=== PATIENT | female | born 2000 | race Caucasian/White ===

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

== ENCOUNTER 2018-05-05 23:06 | Emergency (ER) | payer OTHER ==
[2018-05-05] MEDS ORDERED: SODIUM CHLORIDE 0.9% 1,000 ML IV STA (23:13)
[2018-05-05] MEDS ORDERED: SODIUM CHLORIDE 0.9% 500 ML IV STA (23:13)
[2018-05-05 23:55] LABS: Basophils % (A) 1 %; Eosinophils # (A) 0.2 k/uL (0-0.7); Eosinophils % (A) 3 %; HCT 37.2 % (34.0-46.0); Lymphocytes # (A) 2.2 k/uL (1.0-4.8); Lymphocytes % (A) 49 %; MCH 28.5 pg (25.0-35.0); MCHC 32.2 g/dL (31.0-37.0); MCV 88.4 fL (80.0-100.0); Mean Platelet Volume 6.6; Monocytes # (A) 0.2 k/uL (0-1.0); Monocytes % (A) 5 %; Neutrophils # (A) 1.8 k/uL (1.3-7.7); Neutrophils % (A) 39 %; Platelet Count 249 k/uL (150-450); RBC 4.21 m/uL (3.80-5.40); RDW 13.7 % (11.5-15.5); WBC 4.6 k/uL (4.0-11.0)
[2018-05-06 00:07] LABS: ALT 32 U/L (9-52); AST 26 U/L (14-36); Acetaminophen <10.0 ug/mL; Albumin 4.4 g/dL (3.5-5.0); Alcohol <10 mg/dL; Alkaline Phosphatase 58 U/L (38-126); Anion Gap 11 mmol/L; Blood Urea Nitrogen 10 mg/dL (7-17); Calcium 8.8 mg/dL (8.4-10.2); Carbon Dioxide 24 mmol/L (22-30); Chloride 104 mmol/L (98-107); Glucose 213 mg/dL (74-99); Magnesium 1.9 mg/dL (1.6-2.3); Potassium 3.8 mmol/L (3.5-5.1); Salicylate <1.0 mg/dL; Sodium 139 mmol/L (137-145); Total Bilirubin 0.3 mg/dL (0.2-1.3); Total Protein 7.2 g/dL (6.3-8.2)
[2018-05-06] MEDS ORDERED: NALOXONE 0.4 MG/ML 1 ML VIAL IV STA (00:08)
[2018-05-06 00:16] LABS: INR 1.1 (<1.2); Partial Thromboplastin Time 20.7 sec (22.0-30.0); Prothrombin Time 10.7 sec (9.0-12.0)
[2018-05-06 00:26] LABS: Amphetamine Screen,Urine Detected (NotDetected); Barbiturate Screen,Urine Not Detected (NotDetected); Benzodiazepines Screen,Urine Detected (NotDetected); Cocaine Screen,Urine Not Detected (NotDetected); Methadone Screen, Urine Not Detected (NotDetected); Opiate Screen,Urine Not Detected (NotDetected); Oxycodone Screen, Urine Not Detected (NotDetected); Phencyclidine Screen,Urine Not Detected (NotDetected); Tricyclic Antidepressant,Urine Not Detected (NotDetected); Urn Cannabinoid Scrn Not Detected (NotDetected)
[2018-05-06 00:27] LABS: Creatine Kinase 48 U/L (30-135)
[2018-05-06 00:40] LABS: Creatine Kinase MB 0.4 ng/mL (0.0-2.4); Troponin I <0.012 ng/mL (0.000-0.034)
--- NOTE | 2018-05-06 00:45 | ED ---
Overdose HPI - General Chief Complaint: Overdose Stated Complaint: overdose Time Seen by Provider: 05/05/18 23:13 Source: family Mode of arrival: wheelchair Limitations: altered mental status - History of Present Illness Initial Comments: 18 years O female overdosed with medications she stated she took some back and symptoms benzodiazepines she was brought in by friends on arrival she was not breathing he was quite pale she was not even responding to sternal rub. Now her friend said that she has a history of drug abuse in the past and there were some needle green visible on her forearms on arrival review of system is not available - Related Data Home Medications Medication Instructions Recorded Confirmed LORazepam [Ativan] 2 mg PO Q12HR PRN 05/14/17 09/22/17 Previous Rx's Medication Instructions Recorded Cephalexin [Keflex] 500 mg PO Q8HR #30 cap 05/06/18 Allergies Allergy/AdvReac Type Severity Reaction Status Date / Time animal dander Allergy Itching Verified 05/06/18 00:03 amoxicillin [From Augmentin] AdvReac Nausea & Verified 05/06/18 00:03 Vomiting clavulanic acid AdvReac Nausea & Verified 05/06/18 00:03 [From Augmentin] Vomiting Review of Systems ROS Statement: Those systems with pertinent positive or pertinent negative responses have been documented in the HPI. ROS Other: All systems not noted in ROS Statement are negative. Past Medical History Past Medical History: No Reported History Additional Past Medical History / Comment(s): migraines, hep C History of Any Multi-Drug Resistant Organisms: None Reported Past Surgical History: No Surgical Hx Reported Additional Past Surgical History / Comment(s): wisdom teeth removed. Past Psychological History: Anxiety, Depression Smoking Status: Former smoker Past Alcohol Use History: None Reported Past Drug Use History: Heroin, Methamphetamine, Prescription Drug Abuse General Exam - General Exam Comments Initial Comments: General: The patient is unresponsive on arrival Skin: Skin is warm and dry and no rashes or lesions are noted. Eye: Pupils are equal, round and reactive to light. Ears, nose, mouth and throat: There are moist mucous membranes and no oral lesions. Neck: The neck is supple, there is no tenderness . Cardiovascular: There is a regular rate and rhythm. Noticed tachycardia Respiratory: To auscultation bilateral, adequate air exchange noticed bilaterally but she was being bagged , her respiratory rate was 5 breaths per minute Gastrointestinal: Soft, non-distended, non-tender abdomen without masses or organomegaly noted. There is no rebound or guarding present. Bowel sounds are unremarkable. Back: There is no tenderness to palpation in the midline. There is no obvious deformity. Musculoskeletal: Normal ROM, no tenderness, There is no pedal edema. There is no calf tenderness or swelling. No cords were appreciated. Neurological: CN II-XII intact, Cranial nerves III through XII are intact. There are no obvious motor or sensory deficits. Coordination appears grossly intact. Speech is normal. Psychiatric: Cooperative, appropriate mood & affect, normal judgment. Limitations: altered mental status Course Vital Signs 05/05/18 05/05/18 05/06/18 23:50 23:57 00:03 Temperature 98.0 F Pulse Rate 117 H Pulse Rate [ 117 H Cmm Inspector ] Respiratory 18 26 H Rate Blood Pressure 117/88 O2 Sat by Pulse 100 Oximetry EKG is a sinus tachycardia ventricular rate is 113 MT interval is 142 QRS duration is 82 QT/QTc is 348/477. This EKG does not reveal any ST elevation or ST depression - Reevaluation(s) Reevaluation #1: At term 1245 she feels better she has right and she has a friend with her she was to go home as soon as she is done with A couple of liters of fluid she be discharged home with her friend 05/06/18 00:46 Medical Decision Making - Lab Data Result diagrams: 05/05/18 23:33 05/05/18 23:33 Lab Results 05/05/18 05/05/18 05/05/18 Range/Units 23:33 23:33 23:33 WBC 4.6 (4.0-11.0) k/uL RBC 4.21 (3.80-5.40) m/uL Hgb 12.0 (11.4-16.0) gm/dL Hct 37.2 (34.0-46.0) % MCV 88.4 (80.0-100.0) fL MCH 28.5 (25.0-35.0) pg MCHC 32.2 (31.0-37.0) g/dL RDW 13.7 (11.5-15.5) % Plt Count 249 (150-450) k/uL Neutrophils % 39 % Lymphocytes % 49 % Monocytes % 5 % Eosinophils % 3 % Basophils % 1 % Neutrophils # 1.8 (1.3-7.7) k/uL Lymphocytes # 2.2 (1.0-4.8) k/uL Monocytes # 0.2 (0-1.0) k/uL Eosinophils # 0.2 (0-0.7) k/uL Basophils # 0.0 (0-0.2) k/uL PT (9.0-12.0) sec INR (<1.2) APTT (22.0-30.0) sec Sodium 139 (137-145) mmol/L Potassium 3.8 (3.5-5.1) mmol/L Chloride 104 (98-107) mmol/L Carbon Dioxide 24 (22-30) mmol/L Anion Gap 11 mmol/L BUN 10 (7-17) mg/dL Creatinine 0.80 (0.52-1.04) mg/dL Est GFR (CKD-EPI)AfAm >90 (>60 ml/min/1.73 sqM) Est GFR (CKD-EPI)NonAf >90 (>60 ml/min/1.73 sqM) Glucose 213 H (74-99) mg/dL Plasma Lactic Acid Nick (0.7-2.0) mmol/L Calcium 8.8 (8.4-10.2) mg/dL Magnesium 1.9 (1.6-2.3) mg/dL Total Bilirubin 0.3 (0.2-1.3) mg/dL AST 26 (14-36) U/L ALT 32 (9-52) U/L Alkaline Phosphatase 58 (38-126) U/L Total Creatine Kinase 48 (30-135) U/L CK-MB (CK-2) 0.4 (0.0-2.4) ng/mL CK-MB (CK-2) Rel Index 0.8 Troponin I <0.012 (0.000-0.034) ng/mL Total Protein 7.2 (6.3-8.2) g/dL Albumin 4.4 (3.5-5.0) g/dL Urine HCG, Qual (Not Detectd) Salicylates <1.0 mg/dL Urine Opiates Screen (NotDetected) Ur Oxycodone Screen (NotDetected) Urine Methadone Screen (NotDetected) Ur Propoxyphene Screen (NotDetected) Acetaminophen <10.0 ug/mL Ur Barbiturates Screen (NotDetected) U Tricyclic Antidepress (NotDetected) Ur Phencyclidine Scrn (NotDetected) Ur Amphetamines Screen (NotDetected) U Methamphetamines Scrn (NotDetected) U Benzodiazepines Scrn (NotDetected) Urine Cocaine Screen (NotDetected) U Marijuana (THC) Screen (NotDetected) Serum Alcohol <10 mg/dL 05/05/18 05/05/18 05/06/18 Range/Units 23:33 23:33 00:12 WBC (4.0-11.0) k/uL RBC (3.80-5.40) m/uL Hgb (11.4-16.0) gm/dL Hct (34.0-46.0) % MCV (80.0-100.0) fL MCH (25.0-35.0) pg MCHC (31.0-37.0) g/dL RDW (11.5-15.5) % Plt Count (150-450) k/uL Neutrophils % % Lymphocytes % % Monocytes % % Eosinophils % % Basophils % % Neutrophils # (1.3-7.7) k/uL Lymphocytes # (1.0-4.8) k/uL Monocytes # (0-1.0) k/uL Eosinophils # (0-0.7) k/uL Basophils # (0-0.2) k/uL PT 10.7 (9.0-12.0) sec INR 1.1 (<1.2) APTT 20.7 L (22.0-30.0) sec Sodium (137-145) mmol/L Potassium (3.5-5.1) mmol/L Chloride (98-107) mmol/L Carbon Dioxide (22-30) mmol/L Anion Gap mmol/L BUN (7-17) mg/dL Creatinine (0.52-1.04) mg/dL Est GFR (CKD-EPI)AfAm (>60 ml/min/1.73 sqM) Est GFR (CKD-EPI)NonAf (>60 ml/min/1.73 sqM) Glucose (74-99) mg/dL Plasma Lactic Acid Nick 2.2 H* (0.7-2.0) mmol/L Calcium (8.4-10.2) mg/dL Magnesium (1.6-2.3) mg/dL Total Bilirubin (0.2-1.3) mg/dL AST (14-36) U/L ALT (9-52) U/L Alkaline Phosphatase (38-126) U/L Total Creatine Kinase (30-135) U/L CK-MB (CK-2) (0.0-2.4) ng/mL CK-MB (CK-2) Rel Index Troponin I (0.000-0.034) ng/mL Total Protein (6.3-8.2) g/dL Albumin (3.5-5.0) g/dL Urine HCG, Qual (Not Detectd) Salicylates mg/dL Urine Opiates Screen Not Detected (NotDetected) Ur Oxycodone Screen Not Detected (NotDetected) Urine Methadone Screen Not Detected (NotDetected) Ur Propoxyphene Screen Not Detected (NotDetected) Acetaminophen ug/mL Ur Barbiturates Screen Not Detected (NotDetected) U Tricyclic Antidepress Not Detected (NotDetected) Ur Phencyclidine Scrn Not Detected (NotDetected) Ur Amphetamines Screen Detected H (NotDetected) U Methamphetamines Scrn Detected H (NotDetected) U Benzodiazepines Scrn Detected H (NotDetected) Urine Cocaine Screen Not Detected (NotDetected) U Marijuana (THC) Screen Not Detected (NotDetected) Serum Alcohol mg/dL 05/06/18 Range/Units 00:12 WBC (4.0-11.0) k/uL RBC (3.80-5.40) m/uL Hgb (11.4-16.0) gm/dL Hct (34.0-46.0) % MCV (80.0-100.0) fL MCH (25.0-35.0) pg MCHC (31.0-37.0) g/dL RDW (11.5-15.5) % Plt Count (150-450) k/uL Neutrophils % % Lymphocytes % % Monocytes % % Eosinophils % % Basophils % % Neutrophils # (1.3-7.7) k/uL Lymphocytes # (1.0-4.8) k/uL Monocytes # (0-1.0) k/uL Eosinophils # (0-0.7) k/uL Basophils # (0-0.2) k/uL PT (9.0-12.0) sec INR (<1.2) APTT (22.0-30.0) sec Sodium (137-145) mmol/L Potassium (3.5-5.1) mmol/L Chloride (98-107) mmol/L Carbon Dioxide (22-30) mmol/L Anion Gap mmol/L BUN (7-17) mg/dL Creatinine (0.52-1.04) mg/dL Est GFR (CKD-EPI)AfAm (>60 ml/min/1.73 sqM) Est GFR (CKD-EPI)NonAf (>60 ml/min/1.73 sqM) Glucose (74-99) mg/dL Plasma Lactic Acid Nick (0.7-2.0) mmol/L Calcium (8.4-10.2) mg/dL Magnesium (1.6-2.3) mg/dL Total Bilirubin (0.2-1.3) mg/dL AST (14-36) U/L ALT (9-52) U/L Alkaline Phosphatase (38-126) U/L Total Creatine Kinase (30-135) U/L CK-MB (CK-2) (0.0-2.4) ng/mL CK-MB (CK-2) Rel Index Troponin I (0.000-0.034) ng/mL Total Protein (6.3-8.2) g/dL Albumin (3.5-5.0) g/dL Urine HCG, Qual Not Detected (Not Detectd) Salicylates mg/dL Urine Opiates Screen (NotDetected) Ur Oxycodone Screen (NotDetected) Urine Methadone Screen (NotDetected) Ur Propoxyphene Screen (NotDetected) Acetaminophen ug/mL Ur Barbiturates Screen (NotDetected) U Tricyclic Antidepress (NotDetected) Ur Phencyclidine Scrn (NotDetected) Ur Amphetamines Screen (NotDetected) U Methamphetamines Scrn (NotDetected) U Benzodiazepines Scrn (NotDetected) Urine Cocaine Screen (NotDetected) U Marijuana (THC) Screen (NotDetected) Serum Alcohol mg/dL Critical Care Time Total Critical Care Time: 30 Critical Care Time: Arrival she was unresponsive respiratory rate was very low she look pale she was at work just respiratory failure , he was bagged knowing that she overdosed with the uterine mostly a few bag patient for few minutes they wake up. Narcan was given as well 0.4 was repeated 34 times she was quite dehydrated IV attempts failed a few times at that point intraosseous was done at the proximal tibia plate below the tibial tuberosity I were able to give her the Narcan through that I would give her some fluids and about term after 1520 minutes she started waking up blood work was done, CBC, comp his metabolic panel was fine and lactate is 2.2 at 2 L of fluids are ordered urinalysis showed amphetamine meth) so was positive no alcohol was noticed Disposition Clinical Impression: Drug overdose, Polysubstance abuse, Cellulitis of left hand Disposition: HOME SELF-CARE Condition: Good Instructions: Methamphetamine Abuse (ED) Prescriptions: Cephalexin [Keflex] 500 mg PO Q8HR #30 cap Is patient prescribed a controlled substance at d/c from ED?: No Referrals: Nickolas Kennedy III, MD [Primary Care Provider] - 1-2 days
--- NOTE | 2018-05-06 01:04 | XR ---
EXAMINATION TYPE: XR chest 2V DATE OF EXAM: 05/06/2018 COMPARISON: 05/14/2017 HISTORY: Chest pain TECHNIQUE: Frontal and lateral views of the chest are obtained. FINDINGS: Heart and mediastinum are normal. Lungs are clear. Diaphragm is normal. Bony thorax appear s normal. IMPRESSION: Normal chest. No change.
[2018-05-06 02:16] VITALS: BP 121/78; PULSE 118; RESP 18; TEMP 98.7
== END 2018-05-06 02:19 | disposition home or self-care (01) ==
LOC: SUPCPDRO 23:06 → EC 23:06
DX: T43.621A Poisoning by amphetamines, accidental (unintentional), initial encounter (principal); F19.10 Other psychoactive substance abuse, uncomplicated; L03.114 Cellulitis of left upper limb; R00.0 Tachycardia, unspecified; R41.82 Altered mental status, unspecified; Z87.891 Personal history of nicotine dependence; Z88.0 Allergy status to penicillin; Z91.048 Other nonmedicinal substance allergy status
CPT/HCPCS: 36415 ×2; 93005; 80053; 82550; 82553; 83605; 83735; 84484; 85025; 85610; 85730; 81025; 80306; 83520 ×2; 80320; 71046; 99285; 96374; 96361 ×2; J2310

== ENCOUNTER 2018-05-26 12:17 | Emergency (ER) | payer OTHER ==
[2018-05-26] MEDS ORDERED: SODIUM CHLORIDE 0.9% 1,000 ML IV STA (13:42)
[2018-05-26 14:14] LABS: Basophils % (A) 0 %; Eosinophils # (A) 0.3 k/uL (0-0.7); Eosinophils % (A) 3 %; HCT 38.3 % (34.0-46.0); HGB 13.3 gm/dL (11.4-16.0); Lymphocytes # (A) 2.4 k/uL (1.0-4.8); Lymphocytes % (A) 28 %; MCH 30.4 pg (25.0-35.0); MCHC 34.7 g/dL (31.0-37.0); MCV 87.5 fL (80.0-100.0); Mean Platelet Volume 6.8; Monocytes # (A) 0.5 k/uL (0-1.0); Monocytes % (A) 6 %; Neutrophils # (A) 5.2 k/uL (1.3-7.7); Neutrophils % (A) 61 %; Platelet Count 269 k/uL (150-450); RBC 4.38 m/uL (3.80-5.40); RDW 13.5 % (11.5-15.5); WBC 8.4 k/uL (4.0-11.0)
[2018-05-26 14:29] LABS: ALT 42 U/L (9-52); AST 29 U/L (14-36); Albumin 5.1 g/dL (3.5-5.0); Alkaline Phosphatase 64 U/L (38-126); Anion Gap 13 mmol/L; Blood Urea Nitrogen 13 mg/dL (7-17); Carbon Dioxide 26 mmol/L (22-30); Chloride 102 mmol/L (98-107); Glucose 90 mg/dL (74-99); Potassium 3.8 mmol/L (3.5-5.1); Sodium 141 mmol/L (137-145); Total Bilirubin 1.2 mg/dL (0.2-1.3); Total Protein 8.7 g/dL (6.3-8.2)
[2018-05-26 14:38] LABS: Appearance,Urine Cloudy (Clear); Bacteria,Urine Many /hpf; Bilirubin,Urine Negative (Negative); Blood,Urine Negative (Negative); Color,Urine Yellow; Glucose,Urine (UA) Negative (Negative); Ketones,Urine 1+ (Negative); Leukocyte Esterase,Urine Small (Negative); Mucus,Urine Moderate /hpf; Nitrite,Urine Positive (Negative); Protein,Urine Trace (Negative); RBC,Urine 3 /hpf (0-5); Specific Gravity,Urine 1.019 (1.001-1.035); Squamous Epithelial Cell,Urine 2 /hpf (0-4); Urobilinogen,Urine <2.0 mg/dL (<2.0); WBC,Urine 49 /hpf (0-5)
[2018-05-26] MEDS ORDERED: VANCOMYCIN IV PER PHARMACY 1 EACH MISC MISCELLANE PRN (14:38)
[2018-05-26] MEDS ORDERED: VANCOMYCIN 1,000 MG in SODIUM CHLORIDE 0.9% 250 ML IVPB STA (14:42)
--- NOTE | 2018-05-26 15:19 | ED ---
Skin/Abscess/FB HPI - General Chief complaint: Skin/Abscess/Foreign Body Stated complaint: ABSCESS RT ARM Time Seen by Provider: 05/26/18 13:11 Source: patient, RN notes reviewed Mode of arrival: ambulatory Limitations: no limitations - History of Present Illness Initial comments: This is a 18-year-old female with history of IV drug abuse who presents to the emergency department with chief complaint of right arm abscess. Patient reports that yesterday a friend and was injecting methamphetamine intravenously into her right arm yesterday. Patient states that it immediately swelled up and then today became very red and tender. Patient reports a history of abscesses but states she normally takes care of them herself. Patient also states she is unsure if she may be , stating that she missed her period last month. She denies any fevers or chills, chest pain or shortness of breath , abdominal pain, nausea or vomiting. - Related Data Home Medications Medication Instructions Recorded Confirmed LORazepam [Ativan] 2 mg PO Q12HR PRN 05/14/17 09/22/17 Previous Rx's Medication Instructions Recorded Cephalexin [Keflex] 500 mg PO Q8HR #30 cap 05/06/18 Levofloxacin [Levaquin] 500 mg PO DAILY #7 tab 05/26/18 Allergies Allergy/AdvReac Type Severity Reaction Status Date / Time animal dander Allergy Itching Verified 05/26/18 12:44 amoxicillin [From Augmentin] AdvReac Nausea & Verified 05/26/18 12:44 Vomiting clavulanic acid AdvReac Nausea & Verified 05/26/18 12:44 [From Augmentin] Vomiting Review of Systems ROS Statement: Those systems with pertinent positive or pertinent negative responses have been documented in the HPI. ROS Other: All systems not noted in ROS Statement are negative. Past Medical History Past Medical History: No Reported History Additional Past Medical History / Comment(s): migraines, hep C History of Any Multi-Drug Resistant Organisms: None Reported Past Surgical History: No Surgical Hx Reported Additional Past Surgical History / Comment(s): wisdom teeth removed. Past Psychological History: Anxiety, Depression Smoking Status: Former smoker Past Alcohol Use History: None Reported Past Drug Use History: IV Drug Use, Methamphetamine, Prescription Drug Abuse General Exam - General Exam Comments Initial Comments: General: Awake and alert, well-developed; in no apparent distress. HEENT: Head atraumatic, normocephalic. Pupils are equal, round and reactive to light. Extraocular movements intact. Oropharynx moist without erythema or exudate. Neck: Supple. Normal ROM. Cardiovascular: Regular rate and rhythm. No murmurs, rubs or gallops. Chest symmetrical. Radial pulses are 2+ equal and palpable bilaterally. Respiratory: Lungs clear to auscultation bilaterally. No wheezes, rales or rhonchi. Normal respiratory effort with no use of accessory muscles. Musculoskeletal: Normal ROM bilateral upper and lower extremities. Ambulating normally. Skin: Erythema, tenderness and swelling of medial distal right arm measuring approximately 11 cm x 11 cm. Just lateral to this is an area of linear ecchymosis extending along a vein. There is a palpable cord with tenderness. Sensation is intact. Neurological: Alert and oriented x3. CN II-XII grossly intact. Speech is fluent and answers are appropriate. No focal neuro deficits. Psychiatric: Normal mood and affect. No overt signs of depression or anxiety noted. Limitations: no limitations Course Vital Signs 05/26/18 05/26/18 05/26/18 12:38 16:14 17:11 Temperature 98.2 F 98.4 F 98.3 F Pulse Rate 122 H 105 H 103 H Respiratory 16 18 18 Rate Blood Pressure 124/72 110/71 123/73 O2 Sat by Pulse 99 99 100 Oximetry Medical Decision Making - Medical Decision Making This is a 18-year-old female with history of IV drug abuse who presents to the emergency department with chief complaint of abscess. Patient reports IV drug use last evening. She states that she instantly developed swelling to the right arm and has now developed redness and tenderness. On physical examination , there is a large area of cellulitis to the medial right arm. There is also an area of ecchymosis with palpable cord that is consistent with superficial thrombophlebitis. An ultrasound venous Doppler duplex of the right upper extremity was obtained to rule out DVT. No evidence for DVT. CBC, CMP revealed no acute abnormalities. Lactic acid is within normal range. No white count. Urine hCG is negative. Urine does reveal evidence for infection with positive nitrites, leukocyte esterase and bacteria. Patient was started on a dose of IV vancomycin as she is high risk. Case was discussed with attending physician, Dr. Ruiz. Patient's vital signs are stable and she is in no acute distress. She will be discharged home with prescription for Levaquin. Return parameters were discussed including spreading of redness, streaking or redness or worsening symptoms. Patient also advised to return the emergency department if she develops any fevers. Patient is in no acute distress. Vital signs are stable, she has mild tachycardia, however on review of vital signs from previous visits this is consistent. Patient will be discharged home at this time. She is in agreement with plan and voices understanding. All questions were answered. - Lab Data Result diagrams: 05/26/18 13:30 05/26/18 13:30 Lab Results 05/26/18 05/26/18 05/26/18 Range/Units 13:30 13:30 13:30 WBC 8.4 (4.0-11.0) k/uL RBC 4.38 (3.80-5.40) m/uL Hgb 13.3 (11.4-16.0) gm/dL Hct 38.3 (34.0-46.0) % MCV 87.5 (80.0-100.0) fL MCH 30.4 (25.0-35.0) pg MCHC 34.7 (31.0-37.0) g/dL RDW 13.5 (11.5-15.5) % Plt Count 269 (150-450) k/uL Neutrophils % 61 % Lymphocytes % 28 % Monocytes % 6 % Eosinophils % 3 % Basophils % 0 % Neutrophils # 5.2 (1.3-7.7) k/uL Lymphocytes # 2.4 (1.0-4.8) k/uL Monocytes # 0.5 (0-1.0) k/uL Eosinophils # 0.3 (0-0.7) k/uL Basophils # 0.0 (0-0.2) k/uL Sodium 141 (137-145) mmol/L Potassium 3.8 (3.5-5.1) mmol/L Chloride 102 (98-107) mmol/L Carbon Dioxide 26 (22-30) mmol/L Anion Gap 13 mmol/L BUN 13 (7-17) mg/dL Creatinine 0.70 (0.52-1.04) mg/dL Est GFR (CKD-EPI)AfAm >90 (>60 ml/min/1.73 sqM) Est GFR (CKD-EPI)NonAf >90 (>60 ml/min/1.73 sqM) Glucose 90 (74-99) mg/dL Plasma Lactic Acid Nick 1.1 (0.7-2.0) mmol/L Calcium 10.0 (8.4-10.2) mg/dL Total Bilirubin 1.2 (0.2-1.3) mg/dL AST 29 (14-36) U/L ALT 42 (9-52) U/L Alkaline Phosphatase 64 (38-126) U/L Total Protein 8.7 H (6.3-8.2) g/dL Albumin 5.1 H (3.5-5.0) g/dL Urine Color Urine Appearance (Clear) Urine pH (5.0-8.0) Ur Specific Boyce (1.001-1.035) Urine Protein (Negative) Urine Glucose (UA) (Negative) Urine Ketones (Negative) Urine Blood (Negative) Urine Nitrite (Negative) Urine Bilirubin (Negative) Urine Urobilinogen (<2.0) mg/dL Ur Leukocyte Esterase (Negative) Urine RBC (0-5) /hpf Urine WBC (0-5) /hpf Ur Squamous Epith Cells (0-4) /hpf Urine Bacteria (None) /hpf Urine Mucus (None) /hpf Urine HCG, Qual (Not Detectd) 05/26/18 05/26/18 Range/Units 13:30 13:30 WBC (4.0-11.0) k/uL RBC (3.80-5.40) m/uL Hgb (11.4-16.0) gm/dL Hct (34.0-46.0) % MCV (80.0-100.0) fL MCH (25.0-35.0) pg MCHC (31.0-37.0) g/dL RDW (11.5-15.5) % Plt Count (150-450) k/uL Neutrophils % % Lymphocytes % % Monocytes % % Eosinophils % % Basophils % % Neutrophils # (1.3-7.7) k/uL Lymphocytes # (1.0-4.8) k/uL Monocytes # (0-1.0) k/uL Eosinophils # (0-0.7) k/uL Basophils # (0-0.2) k/uL Sodium (137-145) mmol/L Potassium (3.5-5.1) mmol/L Chloride (98-107) mmol/L Carbon Dioxide (22-30) mmol/L Anion Gap mmol/L BUN (7-17) mg/dL Creatinine (0.52-1.04) mg/dL Est GFR (CKD-EPI)AfAm (>60 ml/min/1.73 sqM) Est GFR (CKD-EPI)NonAf (>60 ml/min/1.73 sqM) Glucose (74-99) mg/dL Plasma Lactic Acid Nick (0.7-2.0) mmol/L Calcium (8.4-10.2) mg/dL Total Bilirubin (0.2-1.3) mg/dL AST (14-36) U/L ALT (9-52) U/L Alkaline Phosphatase (38-126) U/L Total Protein (6.3-8.2) g/dL Albumin (3.5-5.0) g/dL Urine Color Yellow Urine Appearance Cloudy H (Clear) Urine pH 6.0 (5.0-8.0) Ur Specific Boyce 1.019 (1.001-1.035) Urine Protein Trace H (Negative) Urine Glucose (UA) Negative (Negative) Urine Ketones 1+ H (Negative) Urine Blood Negative (Negative) Urine Nitrite Positive H (Negative) Urine Bilirubin Negative (Negative) Urine Urobilinogen <2.0 (<2.0) mg/dL Ur Leukocyte Esterase Small H (Negative) Urine RBC 3 (0-5) /hpf Urine WBC 49 H (0-5) /hpf Ur Squamous Epith Cells 2 (0-4) /hpf Urine Bacteria Many H (None) /hpf Urine Mucus Moderate H (None) /hpf Urine HCG, Qual Not Detected (Not Detectd) - Radiology Data Radiology results: report reviewed Ultrasound venous Doppler duplex right upper extremity impression: Correlate for superficial thrombophlebitis. No evidence of deep venous thrombosis. Disposition Clinical Impression: Cellulitis of right arm, Superficial thrombophlebitis, Urinary tract infection Disposition: HOME SELF-CARE Condition: Good Instructions: Cellulitis (ED), Superficial Thrombophlebitis (ED), Urinary Tract Infection in Women (ED) Additional Instructions: Please take medications as prescribed. Please follow up with primary care provider within 1-2 days. Please return to the emergency department if spreading or streaking of redness, or if you develop fevers. Return to emergency department if symptoms should worsen or any concerns arise. Prescriptions: Levofloxacin [Levaquin] 500 mg PO DAILY #7 tab Is patient prescribed a controlled substance at d/c from ED?: No Referrals: Nickolas Kennedy III, MD [Primary Care Provider] - 1-2 days Time of Disposition: 17:34
--- NOTE | 2018-05-26 15:27 | US ---
EXAMINATION TYPE: US venous doppler duplex UE RT DATE OF EXAM: 05/26/2018 COMPARISON: NONE CLINICAL HISTORY: r/o dvt. . Right lower arm area of pain and swelling x 2 days SIDE PERFORMED: Right Right internal jugular vein, axillary vein, brachial veins show no abnormal luminal echoes, normal co flaco flow and compressibility. There are normal vascular waveforms. The cephalic vein was compressible and patent as is the cephalic vein, brachial veins and ulnar veins. Ultrasound of area of patient's concern shows low level internal echoes within the superficial vein. It is noncompressible within the forearm. Right Arm: Appears negative for DVT, right forearm at area of concern: thrombus seen within superfici al vessel Grayscale, color doppler, spectral doppler imaging performed of the deep veins of the upper extremiti es. There is normal flow, compressibility and vascular waveforms. IMPRESSION: Correlate for superficial thrombophlebitis. No evident deep venous thrombosis.
[2018-05-26 16:15] VITALS: RESP 18
[2018-05-26 17:12] VITALS: BP 123/73; PULSE 103; TEMP 98.3
[2018-05-26] MEDS ORDERED: VANCOMYCIN 1,000 MG in SODIUM CHLORIDE 0.9% 250 ML IVPB SCH (23:00)
== END 2018-05-26 17:42 | disposition home or self-care (01) ==
LOC: EC 12:17
DX: L03.113 Cellulitis of right upper limb (principal); I80.8 Phlebitis and thrombophlebitis of other sites; N39.0 Urinary tract infection, site not specified; Z87.891 Personal history of nicotine dependence; Z91.048 Other nonmedicinal substance allergy status; Z88.0 Allergy status to penicillin
CPT/HCPCS: 99284; 96365; 96366; 96361; 36415; 80053; 83605; 85025; 81001; 81025; 87040; 93971; J3370

== ENCOUNTER 2018-11-17 05:34 | Emergency (ER) | payer OTHER ==
[2018-11-17 05:59] VITALS: BP 124/83; PULSE 112; RESP 20; TEMP 98.4
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
== END 2018-11-17 07:35 | disposition home or self-care (01) ==
LOC: EC 05:34
DX: S01.511A Laceration without foreign body of lip, initial encounter (principal); F32.9 Major depressive disorder, single episode, unspecified; F41.9 Anxiety disorder, unspecified; Z86.19 Personal history of other infectious and parasitic diseases; Z87.891 Personal history of nicotine dependence; Z79.899 Other long term (current) drug therapy; Z91.040 Latex allergy status; Z88.0 Allergy status to penicillin; Z91.09 Other allergy status, other than to drugs and biological substances; Y08.89XA Assault by other specified means, initial encounter
CPT/HCPCS: 99283

== ENCOUNTER 2019-01-24 03:22 | Emergency (ER) | payer OTHER ==
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
[2019-01-24 03:33] VITALS: BP 136/81; PULSE 138; RESP 20
== END 2019-01-24 04:19 | disposition left against medical advice (07) ==
LOC: EC 03:22
DX: T40.1X1A Poisoning by heroin, accidental (unintentional), initial encounter (principal); R00.0 Tachycardia, unspecified; R03.0 Elevated blood-pressure reading, without diagnosis of hypertension; F41.9 Anxiety disorder, unspecified; F32.9 Major depressive disorder, single episode, unspecified; Z87.891 Personal history of nicotine dependence; Z79.899 Other long term (current) drug therapy; Z88.0 Allergy status to penicillin; Z91.040 Latex allergy status; Z91.048 Other nonmedicinal substance allergy status
CPT/HCPCS: 93005; 99284

== ENCOUNTER → 2020-11-01 | Outpatient (CLI) | payer OTHER ==
[2020-11-01 16:25] LABS: Basophils % (A) 1 %; Eosinophils # (A) 0.4 k/uL (0-0.7); Eosinophils % (A) 6 %; HCT 40.8 % (34.0-46.0); Lymphocytes # (A) 2.9 k/uL (1.0-4.8); Lymphocytes % (A) 42 %; MCH 30.9 pg (25.0-35.0); MCHC 34.2 g/dL (31.0-37.0); MCV 90.2 fL (80.0-100.0); Monocytes # (A) 0.4 k/uL (0-1.0); Monocytes % (A) 5 %; Neutrophils # (A) 3.1 k/uL (1.3-7.7); Neutrophils % (A) 45 %; Platelet Count 250 k/uL (150-450); RBC 4.53 m/uL (3.80-5.40); RDW 12.4 % (11.5-15.5); WBC 6.9 k/uL (3.8-10.6)
[2020-11-02 01:00] LABS: African American GFR (CKD) 121.3 (60.0-200.0); Albumin/Globulin Ratio 1.72 (1.60-3.17); Anion Gap 12.3 mmol/L (4.00-12.00); Calcium 9.6 mg/dL (8.7-10.3); Carbon Dioxide 21.7 mmol/L (21.6-31.8); Globulin 2.9 g/dL (1.6-3.3); Non-African American GFR(CKD) 104.6 (60.0-200.0); Potassium 3.8 mmol/L (3.5-5.5); Total Bilirubin 0.3 mg/dL (0.3-1.2); Total Protein 7.9 g/dL (6.2-8.2)
== END | disposition home or self-care (01) ==
LOC: LABWHC1 15:34
PROVIDERS: ATTEND Family Medicine
DX: Z00.01 Encounter for general adult medical examination with abnormal findings (principal); B17.10 Acute hepatitis C without hepatic coma; F33.1 Major depressive disorder, recurrent, moderate; F41.9 Anxiety disorder, unspecified; F60.3 Borderline personality disorder; F11.21 Opioid dependence, in remission; N92.6 Irregular menstruation, unspecified; G47.00 Insomnia, unspecified
CPT/HCPCS: 36415; 80053; 85025; 87522

== ENCOUNTER → 2020-11-01 | Outpatient (CLI) | payer OTHER ==
--- NOTE | 2020-11-01 15:46 | XR ---
EXAMINATION TYPE: XR humerus LT DATE OF EXAM: 11/01/2020 CLINICAL HISTORY: Infertility implant. TECHNIQUE: Two views of the left humerus are obtained. COMPARISON: None. FINDINGS: There is no acute fracture or dislocation seen in the left humerus. The visualized left s houlder and elbow joints appear within normal limits. Linear 4.5 cm foreign body or implant noted manolo ng the volar surface mid to distal diaphyseal level left humerus in the deep subcutaneous tissue just above the muscle. IMPRESSION: As above.
== END | disposition home or self-care (01) ==
LOC: RADXRMAIN 15:17
PROVIDERS: ATTEND Family Medicine
DX: M79.602 Pain in left arm (principal)

== ENCOUNTER 2021-11-24 07:32 | Day surgery (SDC) | payer OTHER ==
[2021-11-20 13:53] VITALS: BMI 30.2
[~2021-11-24 07:32] MED LIST: ACETAMINOPHEN TAB 500 MG TAB PO PRN; HEPARIN SODIUM,PORCINE/PF 5,000 UNIT/0.5 ML SYRINGE SQ PRN; Pre Op ABX Message 1 EACH MISC MISCELLANE ONE
[2021-11-24] MEDS ORDERED: DEXAMETHASONE SOD PHOSPHATE 4 MG/ML 1 ML VIAL IV ONE (07:52)
[2021-11-24] MEDS ORDERED: LIDOCAINE 1% (10MG/ML) FOR IV START INTRADERMA PRN (07:52)
[2021-11-24] MEDS ORDERED: HYDROmorphone 0.5 MG/0.5 ML SYRINGE IVP PRN (07:52)
[2021-11-24] MEDS ORDERED: SCOPOLAMINE 1.5MG/72HR PATCH TRANSDERM ONE (07:52)
[2021-11-24] MEDS ORDERED: LACTATED RINGERS 1,000 ML IV SCH (07:52)
--- NOTE | 2021-11-24 07:53 | P.GSHP ---
History of Present Illness H&P Date: 11/24/21 Chief Complaint: Left arm foreign body 21-year-old seen in the office approximately one month ago. Patient with complaints of a foreign body left upper arm. Patient had a contraceptive device placed in the left upper arm in 2017. 2 years after that she was no longer able to feel the mass. No discomfort. No numbness or tingling. Past Medical History Past Medical History: No Reported History Additional Past Medical History / Comment(s): HEPATITIS C-CURRENT History of Any Multi-Drug Resistant Organisms: None Reported Past Surgical History: No Surgical Hx Reported Additional Past Surgical History / Comment(s): wisdom teeth removed. Past Anesthesia/Blood Transfusion Reactions: No Reported Reaction Past Psychological History: Anxiety, Depression Smoking Status: Vaper Past Alcohol Use History: None Reported Past Drug Use History: None Reported Additional Drug Use History / Comment(s): PAST IV DRUG USE/METH USE/PRESCRIPTION DRUG USE, CLEAN SINCE LATE 2018 - Past Family History Mother Family Medical History: No Reported History Medications and Allergies Home Medications Medication Instructions Recorded Confirmed Type Sertraline [Zoloft] 50 mg PO DAILY 11/17/18 11/20/21 History busPIRone HCl [Buspar] 15 mg PO BID 11/20/21 11/20/21 History traZODone HCL 100 mg PO HS 11/20/21 11/20/21 History Allergies Allergy/AdvReac Type Severity Reaction Status Date / Time animal dander Allergy Itching Verified 11/20/21 13:32 latex Allergy Rash/Hives Verified 11/20/21 13:32 amoxicillin [From Augmentin] AdvReac Nausea & Verified 11/20/21 13:32 Vomiting clavulanic acid AdvReac Nausea & Verified 11/20/21 13:32 [From Augmentin] Vomiting Surgical - Exam Physical exam: General: Well-developed, well-nourished HEENT: Normocephalic, sclerae nonicteric Abdomen: Nontender, nondistended Extremities: No edema, prior scar noted left upper arm without palpable mass Neuro: Alert and oriented Assessment and Plan (1) Foreign body of left upper arm Narrative/Plan: Will proceed with removal left upper arm foreign body with fluoroscopy Current Visit: Yes Status: Acute Code(s): S40.852A - SUPERFICIAL FOREIGN BODY OF LEFT UPPER ARM, INIT ENCNTR SNOMED Code(s): 825443128
[2021-11-24] MEDS ORDERED: ONDANSETRON 4 MG/2 ML VIAL ONE (08:15)
[2021-11-24] MEDS ORDERED: LIDOCAINE 1% (10MG/ML) FOR IV START SQ ONE (08:31)
[2021-11-24] MEDS ORDERED: BUPIVACAINE (PF) 0.25% 30 ML VIAL SQ ONE ×2 (08:43)
[2021-11-24] MEDS ORDERED: PROPOFOL 10 MG/ML 20 ML VIAL IV ONE (08:45)
[2021-11-24] MEDS ORDERED: fentaNYL (PF) 50 MCG/ML 2 ML AMP ONE (08:45)
[2021-11-24] MEDS ORDERED: MIDAZOLAM 2 MG/2 ML VIAL ONE (08:45)
[2021-11-24] MEDS ORDERED: SUCCINYLCHOLINE CHLORIDE 100 MG/5 ML SYR IV ONE (08:45)
[2021-11-24] MEDS ORDERED: NALOXONE 0.4 MG/ML 1 ML VIAL IV PRN (09:36)
--- NOTE | 2021-11-24 09:38 | P.OP ---
Date of Procedure: 11/24/21 Procedure(s) Performed: PREOPERATIVE DIAGNOSIS: Left arm foreign body POSTOPERATIVE DIAGNOSIS: Same PROCEDURE: Exploration and removal left arm foreign body SURGEON: Amanda EBL: 2 mL ANESTHESIA: General COMPLICATIONS: None OPERATIVE PROCEDURE: Patient placed in the supine position. Patient was placed under general anesthesia. Left arm prepped and draped sterilely. Using the mini C-arm the location of the foreign body was identified. The previous incision was re-incised and lengthened slightly. Subcutaneous tissues were dissected down to the level of the foreign body. This was able to be palpated once we were deep enough into the tissues. This was just above the muscular fascia. This was excised using blunt dissection. Subcutaneous tissues were closed using 3-0 Vicryl sutures. Skin was closed using a running 4-0 Monocryl stitch. Skin glue and sterile dressings applied. DISPOSITION: Stable to recovery room
[2021-11-24 09:55] VITALS: TEMP 93.8
[2021-11-24 09:56] VITALS: RESP 16
[2021-11-24] MEDS ORDERED: KETOROLAC 15 MG/ML 1 ML VIAL IVP ONE (10:04)
[2021-11-24 11:15] VITALS: BP 110/74; PULSE 83
== END 2021-11-24 11:23 | disposition home or self-care (01) ==
LOC: OR 07:32
PROVIDERS: ATTEND Surgery
DX: Z30.46 Encounter for surveillance of implantable subdermal contraceptive (principal); Z79.899 Other long term (current) drug therapy; Z98.890 Other specified postprocedural states; B19.20 Unspecified viral hepatitis C without hepatic coma; F41.9 Anxiety disorder, unspecified; F32.A Depression, unspecified; F17.290 Nicotine dependence, other tobacco product, uncomplicated; F19.11 Other psychoactive substance abuse, in remission; Z91.040 Latex allergy status; Z88.0 Allergy status to penicillin; Z91.09 Other allergy status, other than to drugs and biological substances
CPT/HCPCS: 81025; 24200; J2250; J1100; J0690; J2405; J3010; J1885; J0330; J2704; J1170; J1644

== ENCOUNTER → 2022-08-25 | Outpatient (CLI) | payer OTHER ==
--- NOTE | 2022-08-25 12:17 | US ---
EXAMINATION TYPE: US liver DATE OF EXAM: 08/25/2022 COMPARISON: NONE CLINICAL HISTORY: 22-year-old female B18.2 CHRONIC VIRAL HEPATITIS C. TECHNIQUE: Multiple sonographic images of the right upper quadrant are obtained. FINDINGS: EXAM MEASUREMENTS: Liver Length: 13.4 cm Gallbladder Wall: 0.2 cm CBD: 0.6 cm Right Kidney: 11.7 x 5.4 x 5.4 cm Pancreas: Only a small portion of the pancreatic head and neck are seen. Most of the body and tail a re secured by bowel gas shadowing. Liver: wnl Gallbladder: 6 mm calculus at the neck of the gallbladder. No hydropic change, wall thickening, or s urrounding fluid. Evidence for sonographic López's sign: no CBD: borderline dilated Right Kidney: wnl, no hydronephrosis. IMPRESSION: 1. A 6 mm gallstone. This is located at the neck of the gallbladder probably on the basis of patient positioning. No gallbladder hydrops or ancillary findings to suggest acute cholecystitis. 2. Borderline dilated bile duct at 6 mm. This may be normal for the patient. Correlate with alkaline phosphatase and bilirubin levels. 3. No focal liver lesion. Overall homogeneous ultrasound appearance to the liver.
== END | disposition home or self-care (01) ==
LOC: RADUSWWP 08:49
PROVIDERS: ATTEND Internal Medicine Gastroenterology
DX: K80.20 Calculus of gallbladder without cholecystitis without obstruction (principal); B18.2 Chronic viral hepatitis C
CPT/HCPCS: 76705